=== PATIENT | female | born 1995 | race Caucasian/White ===

== ENCOUNTER 2023-12-30 17:47 | Observation (INO) ==
--- NOTE | 2023-12-30 18:09 | ED.PDOC ---
General ED Provider: Dr. CARL SOTELO MD Chief Complaint: Cough Stated Complaint: Patient complains acute onset dyspnea the past 4 to 5 days associated with productive cough has dyspnea at rest and exertional dyspnea. Denies chest pain diaphoresis. Palpitations, patient also complains having fever 102 degrees this past 24 hours. Denies chest pain, abdominal pain, urinary symptoms. Patient states she vapes over the past several years. Time Seen by Provider: 12/30/23 18:06 Mode of Arrival: Walk-In Information Source: Patient Exam Limitations: Clinical condition Primary Care Provider: HELEN ESTRELLA Nursing and Triage Documentation Reviewed and Agree: Yes What is Opioid Naive?: *Opioid Naive implies the patient is not already taking opioids or not chronically receiving opioids on a daily basis. *PRN dosing is not "usually" associated with tolerance. *Patients are at higher risk of over-sedation and aspiration. What is Opioid Tolerant?: *Opioid Tolerance implies less than the expected response to an opioid. *Acquired tolerance is defined by the patient taking 60mg of oral morphine daily (or equianalgesic dose of another opioid) for 1 week or more. *Often associated with chronic pain. *May take more than usual dose to achieve desired pain control. Review of Systems Review Of Systems Constitutional: Reports Fever, Malaise and Weakness Eyes: Reports No symptoms Ears, Nose, Mouth, Throat: Reports No symptoms Respiratory: Reports Cough and Shortness of Breath Cardiac: Reports No symptoms GI: Reports No symptoms : Reports No symptoms Musculoskeletal: Reports No symptoms Neurological: Reports No symptoms Endocrine: Reports No symptoms Hematologic/Lymphatic: Reports No symptoms All Other Systems: Reviewed and Negative [facility] Medical History section wound complication O90.9 - Complication of the puerperium, unspecified (ICD-10) Female Reproductive History Menstrual Hx Hysterectomy: No Hx Tubal Ligation: Yes Physical Exam Physical Exam Appearance: Reports Ill-appearing Ill-appearing: Mild Pain Distress: None Eyes: Reports STAN, EOMI and Conjunctiva clear ENT: Reports Ears normal and Nose normal Neck: Supple Respiratory: Reports Airway patent, Breath sounds clear and Breath sounds diminished (Diminished breath sounds at the bases decreased air exchange inspiratory crackles no wheezes rhonchi) Cardiovascular: Reports RRR, Pulses normal and Tachycardia GI/: Reports Soft, Nontender, No masses and Bowel sounds normal Musculoskeletal: Reports Normal strength, ROM intact, No edema and No calf tenderness Skin: Reports Warm, Dry and Normal color Neurological: Reports Sensation intact, Motor intact, Reflexes intact, Cranial nerves intact and Alert Psychiatric: Reports Affect appropriate and Mood appropriate Critical Care Note Critical Care Note Total Critical Care Time (mins): 0 Course Course 12/30/23 18:10 12/30/23 18:17 Orders, Labs, Meds: Lab Review 12/30/23 12/30/23 18:10 18:17 WBC 14.01 H RBC 5.18 Hgb 11.5 L Hct 37.1 MCV 71.6 L MCH 22.2 L MCHC 31.0 L RDW Coeff of Earlene 15.9 H Plt Count 571 H Immature Gran % (Auto) 0.4 Neut % (Auto) 81.1 H Lymph % (Auto) 8.3 L [place] % (Auto) 8.5 Eos % (Auto) 1.4 Baso % (Auto) 0.3 Neut # (Auto) 11.4 H Lymph # (Auto) 1.2 [place] # (Auto) 1.2 Eos # (Auto) 0.2 Baso # (Auto) 0.0 Immature Gran # (Auto) 0.1 PT 10.2 INR 0.98 APTT 29.9 Sodium 137.4 Potassium 3.52 Chloride 100.4 Carbon Dioxide 26.8 Anion Gap 13.72 BUN 5.8 L Creatinine 0.62 Estimated GFR (MDRD) 115.00 BUN/Creatinine Ratio 9.35 Glucose 121.2 H Lactic Acid 0.95 Calcium 9.22 Magnesium 2.08 Total Bilirubin 0.36 AST 45.2 H ALT 47.1 H Alkaline Phosphatase 76.7 Troponin I < 0.012 Total Protein 7.81 Albumin 4.51 Globulin 3.30 Albumin/Globulin Ratio 1.36 Urine Color Yellow Urine Clarity Clear Urine pH 6.5 Ur Specific [place] 1.025 Urine Protein 1+ H Urine Glucose (UA) Negative Urine Ketones Negative Urine Blood Negative Urine Nitrite Negative Urine Bilirubin Negative Urine Urobilinogen 0.2 Ur Leukocyte Esterase Negative Urine Microscopic WBC 2-5 Ur Squamous Epith Cells 2-5 Urine Test Negative Influ A Molecular Assay Negative by naat Influ B Molecular Assay Negative by naat RSV Antigen Negative by naat SARS CoV-2 RNA Rapid DARRELL Negative Orders Category Date Time Status EKG-(ED ONLY) Stat CARDIO 12/30/23 18:17 Completed NEBULIZER TREATMENT Stat CARDIO 12/30/23 18:19 Completed NPO REMINDER: IMAGING ONCE CARE 12/30/23 19:06 Completed Death Clearance Coordinator [ED SIMPLEX PRINTER INSTALLER APPLIED] .ONCE EMERGENCY 12/30/23 18:17 Active BLOOD CULTURE (ED ONLY) Stat LAB 12/30/23 18:10 Received CBC W/ AUTO DIFF Stat LAB 12/30/23 18:10 Completed CMP [COMPREHENSIVE METABOLIC PANEL] Stat LAB 12/30/23 18:17 Completed COVID [SARS COV-2 RNA RAPID DARRELL] Stat LAB 12/30/23 18:10 Completed FLU A & B MOLECULAR [FLU A/B MOLECULAR] Stat LAB 12/30/23 18:10 Completed LACTIC ACID Stat LAB 12/30/23 18:10 Completed MAGNESIUM Stat LAB 12/30/23 18:17 Completed PT WITH INR Stat LAB 12/30/23 18:10 Completed PTT [PARTIAL THROMBOPLASTIN TIME] Stat LAB 12/30/23 18:10 Completed RSV Stat LAB 12/30/23 18:10 Completed TROPONIN I Stat LAB 12/30/23 18:17 Completed URINALYSIS C & S IF INDICATED Stat LAB 12/30/23 18:10 Completed URINE Stat LAB 12/30/23 18:10 Completed Ceftriaxone/D5w 1 gm Premix [Rocephin 1 gm/50 ml D5w] Meds 12/30/23 18:19 Discontinued 1 gm in 50 ml IV ONCE Ibuprofen [Motrin] Meds 12/30/23 19:00 Discontinued 600 mg PO ONCE STA Ipratropium/Albuterol Neb [Duoneb] Meds 12/30/23 18:17 Discontinued 3 ml NEB ONCE STA Sodium Chloride 0.9% [Sodium Chloride] 1,000 ml Meds 12/30/23 18:17 Discontinued IV BOLUS Sodium Chloride 0.9% [Sodium Chloride] 1,000 ml Meds 12/30/23 19:58 Discontinued IV BOLUS CHEST, 1V AP ONLY Stat RADS 12/30/23 18:22 Completed CTA CHEST PE PROTOCOL Stat RADS 12/30/23 19:06 Completed Medications Discontinued Medications Generic Name Dose Route Start Last Admin Trade Name Freq PRN Reason Stop Dose Admin Albuterol/Ipratropium 3 ml 12/30/23 18:17 12/30/23 18:29 Ipratropium/Albuterol Vial.Neb NEB 12/30/23 18:18 3 ml ONCE STA Administration Sodium Chloride 1,000 mls @ 1,000 mls/hr 12/30/23 18:17 12/30/23 19:33 Sodium Chloride IV 12/30/23 19:16 Infused BOLUS ONE Infusion CEFTRIAXONE/D5W 1 GM PREMIX 1 gm in 50 mls @ 100 mls/hr 12/30/23 18:19 12/30/23 18:33 Rocephin 1 Gm/50 Ml D5w IV 12/30/23 18:48 100 mls/hr ONCE ONE Administration Sodium Chloride 1,000 mls @ 1,000 mls/hr 12/30/23 19:58 12/30/23 21:00 Sodium Chloride IV 12/30/23 20:57 Infused BOLUS ONE Infusion Ibuprofen 600 mg 12/30/23 19:00 12/30/23 19:06 Ibuprofen 600 Mg Tablet PO 12/30/23 19:01 600 mg ONCE STA Administration Vital Signs: Temp Pulse Resp BP Pulse Ox 12/30/23 20:58 98.7 F 90 20 118/63 96 12/30/23 17:50 101.2 F H 122 H 22 H 157/87 H 94 L Discharge Plan Discharge Patient Disposition: PLACED OBSERVATION Discharge Problem: Community acquired pneumonia Qualifiers: Laterality: right Lung location: lower lobe of lung Qualified Code(s): J18.9 - Pneumonia, unspecified organism Prescriptions: No Action No Reported Medications Did you review [place] TELEVISION CAMERA OPERATOR for ALL controlled substances?: Not Applicable ED Provider: CARL SOTELO Condition: Stable Physician Progress Note: History obtained from the patient complains of having a productive cough clear sputum increasing dyspnea past 4 to 5 days associated fever and chills. Denies arthralgia. Patient complains of marked exertional dyspnea. Denies chest pain diaphoresis palpitation abdominal pain urinary symptoms. Patient took Tylenol 1000 mg prior to arrival to emergency room Vital signs blood pressure 157/84, pulse 122, respirations 22, temperature 1.2, O2 saturation 94%. Patient placed on sepsis protocol 83 kg / 30 mL IV fluids with saline 1 bolus over 1 hour x 2 Rocephin 1 g IV piggyback 1843-EKG interpretation from self consistent with normal sinus rhythm sinus tachycardia 109 with nonspecific T wave changes noted. There is no ectopy or prolongation of the [place] or QT interval. All laboratory data reviewed CBC, CMP troponin lactic acid and all within normal limit except for a white blood cell count of 14,000, the lactic acid is 0.95. Portable chest x-ray interpretation by myself is consistent with patchy areas of consolidation right lower lobe 2056-temperature is 98.7 2134-vital signs blood pressure pulse of 66, pulse 95, respirations 22, saturation 96% on room air CT of the chest PE protocol reveals contrast interpretation per radiologist consistent with hilar and mediastinal lymphadenopathy likely reactive. There is no evidence of pulmonary mass. There is right lower lobe pneumonia there is no evidence of pulmonary embolism. Differential diagnosis: 1) community-acquired pneumonia Discussed with hospitalist Vee Mcmanus at 2134 for observation
[2023-12-30] MEDS: DUONEB NEB STA (18:29)
[2023-12-30] MEDS: SODIUM CHLORIDE 1,000 ML IV ONE ×2 (18:33→20:00)
[2023-12-30] MEDS: ROCEPHIN 1 GM/50 ML D5W 1 GM/50 ML BAG IV ONE (18:33)
[2023-12-30 18:34] LABS: BASOPHILS % (AUTO) 0.3 % (0.0-3.0); EOSINOPHILS # (AUTO) 0.2 K/ul (0.0-0.7); EOSINOPHILS % (AUTO) 1.4 % (0.0-7.0); HEMATOCRIT 37.1 % (37.0-47.0); HEMOGLOBIN 11.5 g/dl (12.0-16.0); IMMATURE GRANULOCYTE # (AUTO) 0.1 (0.0-1.0); IMMATURE GRANULOCYTE % (AUTO) 0.4 % (0.0-5.0); LYMPHOCYTES # (AUTO) 1.2 K/uL (0.60-3.4); LYMPHOCYTES % (AUTO) 8.3 (10.0-50.0); MEAN CORPUSCULAR HEMOGLOBIN 22.2 pg (27.0-31.0); MEAN CORPUSCULAR VOLUME 71.6 fl (81.0-99.0); MONOCYTES # (AUTO) 1.2 K/uL (0.4-2.0); MONOCYTES % (AUTO) 8.5 (0-10); NEUTROPHILS # (AUTO) 11.4 K/ul (2.0-6.9); NEUTROPHILS % (AUTO) 81.1 % (42.2-75.2); PLATELET COUNT 571 10^3/uL (140-440); RDW COEFFICIENT OF VARIATION 15.9 % (11.6-14.8); RED BLOOD COUNT 5.18 10^6/ul (4.20-5.40); WHITE BLOOD COUNT 14.01 K/ul (4.6-10.2)
[2023-12-30 18:41] LABS: URINE PREGNANCY TEST NEGATIVE (NEGATIVE)
[2023-12-30 18:44] LABS: BILIRUBIN,URINE Negative (NEGATIVE); CLARITY,URINE Clear (CLEAR); COLOR,URINE Yellow (YELLOW); GLUCOSE, URINE (UA) Negative (NEGATIVE); KETONES,URINE Negative (NEGATIVE); LEUKOCYTE ESTERASE ,URINE Negative (NEGATIVE); NITRITE,URINE Negative (NEGATIVE); PH,URINE 6.5 (5-9); PROTEIN,URINE 1+ (NEGATIVE); URINE, BLOOD Negative (NEGATIVE); UROBILINOGEN,URINE 0.2 (0.2)
[2023-12-30 18:49] LABS: ALANINE AMINOTRANSFERASE 47.1 U/L (0-35); ALBUMIN 4.51 g/dL (3.5-5.0); ALKALINE PHOSPHATASE 76.7 U/L (38-126); ASPARTATE AMINO TRANSFERASE 45.2 U/L (14-36); BILIRUBIN,TOTAL 0.36 mg/dL (0.2-1.3); BLOOD UREA NITROGEN 5.8 mg/dL (7-17); CALCIUM 9.22 mg/dL (8.4-10.2); CARBON DIOXIDE 26.8 mmol/L (22-30.0); CHLORIDE 100.4 mmol/L (98-107); CREATININE 0.62 mg/dL (0.60-1.30); GLUCOSE 121.2 mg/dL (74-106); MAGNESIUM 2.08 mg/dL (1.6-2.3); POTASSIUM 3.52 mmol/L (3.5-5.1); SODIUM 137.4 mmol/L (134.5-145); TOTAL PROTEIN 7.81 g/dL (6.3-8.2)
[2023-12-30 18:53] LABS: MOLECULAR FLU A NEGATIVE BY NAAT (NEGATIVE); MOLECULAR FLU B NEGATIVE BY NAAT (NEGATIVE); PARTIAL THROMBOPLASTIN TIME 29.9 SEC (23.9-40.0); PROTHROMBIN TIME 10.2 SEC (9.3-11.0); RSV MOLECULAR NEGATIVE BY NAAT (NEGATIVE); SARS COV-2 RNA RAPID NAAT NEGATIVE (NEGATIVE)
[2023-12-30 19:01] LABS: TROPONIN I < 0.012 ng/ml (0.0000-0.120)
[2023-12-30] MEDS: MOTRIN PO STA (19:06)
--- NOTE | 2023-12-30 20:22 | DI ---
EXAM: CHEST RADIOGRAPH TECHNIQUE: Single frontal chest radiograph. HISTORY: Cough. COMPARISON: CT pulmonary angiogram dated 12/30/2023. FINDINGS: Patchy consolidation in the right lower lobe consistent with pneumonia. Lungs are otherwise clear. The heart size is normal. There is no pleural effusion. There is no pneumothorax. IMPRESSION: 1. Right lower lobe pneumonia. 2. Otherwise unremarkable chest radiograph.
--- NOTE | 2023-12-30 21:25 | CT ---
EXAM: CTA CHEST HISTORY: Dyspnea COMPARISON: None. FINDINGS: Postcontrast helical imaging was obtained through the thorax utilizing 1.2-mm collimation. Sagittal and coronal reconstructions were imaged and reviewed. 3-D volume rendered images are subm itted.. The thoracic inlet is unremarkable. The heart is normal in size without pericardial effusio n. Right hilar lymph node measures 12 mm. Subcarinal lymphadenopathy measures upwards of1. 8 cm. There is no evidence of pulmonary embolus. Dense consolidation is seen within the right lower lobe. The left lung is clear.. Bone windows reveals no lytic or blastic lesions.. Several hypoattenuating lesions in the spleen measuring upwards of 2.1 cm are indeterminate. IMPRESSION: Hilar and mediastinal lymphadenopathy likely reactive No evidence of pulmonary mass. Right lower lobe pneumonia. Follow-up to resolution is recommended ""Indeterminate hypoattenuating lesions within the spleen. All CT scans are performed using dose optimization techniques as appropriate to the performed exam an d include at least one of the following: Automated exposure control, adjustment of the mA and/or kV according t o size, and the use of iterative reconstruction technique.
[2023-12-30 22:40] VITALS: BMI 32.4
[2023-12-30] MEDS: ZITHROMAX PO SCH (22:46)
[2023-12-30] MEDS: LACTATED RINGERS 1,000 ML IV SCH (22:47)
[2023-12-31] MEDS: TYLENOL PO PRN (02:58)
[2023-12-31] MEDS: REGLAN IVP PRN (03:24)
[2023-12-31 05:27] LABS: BASOPHILS % (AUTO) 0.2 % (0.0-3.0); EOSINOPHILS # (AUTO) 0.1 K/ul (0.0-0.7); EOSINOPHILS % (AUTO) 1.1 % (0.0-7.0); HEMATOCRIT 35.9 % (37.0-47.0); HEMOGLOBIN 10.9 g/dl (12.0-16.0); IMMATURE GRANULOCYTE # (AUTO) 0.1 (0.0-1.0); IMMATURE GRANULOCYTE % (AUTO) 0.4 % (0.0-5.0); LYMPHOCYTES # (AUTO) 0.7 K/uL (0.60-3.4); MEAN CORPUSCULAR HEMOGLOBIN 22.2 pg (27.0-31.0); MEAN CORPUSCULAR HGB CONC 30.4 (31.8-35.4); MEAN CORPUSCULAR VOLUME 73.1 fl (81.0-99.0); MONOCYTES # (AUTO) 1.1 K/uL (0.4-2.0); MONOCYTES % (AUTO) 8.5 (0-10); NEUTROPHILS # (AUTO) 10.3 K/ul (2.0-6.9); NEUTROPHILS % (AUTO) 83.8 % (42.2-75.2); PLATELET COUNT 513 10^3/uL (140-440); RDW COEFFICIENT OF VARIATION 16.1 % (11.6-14.8); RED BLOOD COUNT 4.91 10^6/ul (4.20-5.40); WHITE BLOOD COUNT 12.33 K/ul (4.6-10.2)
[2023-12-31 05:42] LABS: ALANINE AMINOTRANSFERASE 43.4 U/L (0-35); ALBUMIN 4.13 g/dL (3.5-5.0); ALKALINE PHOSPHATASE 63.4 U/L (38-126); ASPARTATE AMINO TRANSFERASE 40.3 U/L (14-36); BILIRUBIN,TOTAL 0.29 mg/dL (0.2-1.3); BLOOD UREA NITROGEN 5.2 mg/dL (7-17); CALCIUM 8.9 mg/dL (8.4-10.2); CARBON DIOXIDE 27.5 mmol/L (22-30.0); CHLORIDE 102.8 mmol/L (98-107); CREATININE 0.62 mg/dL (0.60-1.30); GLUCOSE 132.3 mg/dL (74-106); POTASSIUM 3.48 mmol/L (3.5-5.1); SODIUM 139.3 mmol/L (134.5-145); TOTAL PROTEIN 7.15 g/dL (6.3-8.2)
[2023-12-31] MEDS: ROBITUSSIN AC PO PRN (08:40)
[2023-12-31] MEDS: ROCEPHIN 1 GM/50 ML D5W 1 GM/50 ML BAG IV SCH (08:40)
--- NOTE | 2023-12-31 11:06 | PCM ---
Date of Service Date Seen by Provider: 12/31/23 Time Seen by Provider: 09:00 Admit Day/Time Admission Date: 12/30/23 Admission Time: 21:38 Reason for Admission Chief Complaint: COMUNITY-AQUIRED [facility] Hospital Provider [facility] Provider: GERMÁN CHINCHILLA PA-C, [facility] [place] Primary Care Physician Primary Care Physician: HELEN ESTRELLA History of Present Illness History of Present Illness: Patient is a 28 year old female with no significant pmhx who presents to ER for worsening sob, fever, and cough x6 days. Patient is 2 months post s/p c section and currently combo breast/formula feeding. She was found to have RLL on CXR and CTA in ER. WBC was 14. She was febrile and tachycardic. Lactic was normal. She was given fluids and rocephin. She was admitted to med surg. Patient felt terrible through the night, has been tachy, febrile, and coughing. She is agreeable to pump and dump for robitussin with codeine. Case Discussed With Case Discussed With: Patient's case was discussed with the ER Physicians, Dr. Tate. 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) section wound complication O90.9 - Complication of the puerperium, unspecified (ICD-10) Surgical History Hx of tubal ligation Z98.51 - Tubal ligation status (ICD-10) Allergies Allergies Allergy/AdvReac Type Severity Reaction Status Date / Time amoxicillin AdvReac Unknown Verified 12/30/23 17:56 Current Medications Home Medications 1 [No Reported Medications] 12/30/23 [History Confirmed 12/30/23 Last Taken Unknown] Home Acetaminophen (Acetaminophen 325 Mg Tablet) 650 mg PO Q4H PRN PRN Reason: Mild Pain Last Admin: 12/31/23 08:59 Dose: 650 mg Albuterol/Ipratropium (Ipratropium/Albuterol Vial.Neb) 3 ml NEB RTQ6H PRN PRN Reason: Wheezing Azithromycin (Azithromycin 250 Mg Tablet) 500 mg PO BEDTIME ROSAURA Stop: 01/02/24 21:44 Last Admin: 12/30/23 22:46 Dose: 500 mg CEFTRIAXONE/D5W 1 GM PREMIX (Rocephin 1 Gm/50 Ml D5w) 1 gm in 50 mls @ 100 mls/hr IV DAILY ROSAURA Stop: 01/03/24 08:59 Last Admin: 12/31/23 08:40 Dose: 100 mls/hr Metoclopramide HCl (Metoclopramide Hcl 10 Mg/2 Ml) 5 mg IVP Q6HR PRN PRN Reason: nausea Last Admin: 12/31/23 03:24 Dose: 5 mg Discontinued Medications Albuterol/Ipratropium (Ipratropium/Albuterol Vial.Neb) 3 ml NEB ONCE STA Stop: 12/30/23 18:18 Last Admin: 12/30/23 18:29 Dose: 3 ml Sodium Chloride (Sodium Chloride) 1,000 mls @ 1,000 mls/hr IV BOLUS ONE Stop: 12/30/23 19:16 Last Infusion: 12/30/23 19:33 Dose: Infused CEFTRIAXONE/D5W 1 GM PREMIX (Rocephin 1 Gm/50 Ml D5w) 1 gm in 50 mls @ 100 mls/hr IV ONCE ONE Stop: 12/30/23 18:48 Last Admin: 12/30/23 18:33 Dose: 100 mls/hr Sodium Chloride (Sodium Chloride) 1,000 mls @ 1,000 mls/hr IV BOLUS ONE Stop: 12/30/23 20:57 Last Infusion: 12/30/23 21:00 Dose: Infused Lactated Ringer's (Lactated Ringers) 1,000 mls @ 100 mls/hr IV .Q10H ROSAURA Last Infusion: 12/31/23 08:34 Dose: Infused Ibuprofen (Ibuprofen 600 Mg Tablet) 600 mg PO ONCE STA Stop: 12/30/23 19:01 Last Admin: 12/30/23 19:06 Dose: 600 mg Opioid Naive vs. Tolerant Does Patient Take Opioids?: No Is Patient Opioid Naive?: Yes What is Opioid Naive?: *Opioid Naive implies the patient is not already taking opioids or not chronically receiving opioids on a daily basis. *PRN dosing is not "usually" associated with tolerance. *Patients are at higher risk of over-sedation and aspiration. Is Patient Opioid Tolerant?: No What is Opioid Tolerant?: *Opioid Tolerance implies less than the expected response to an opioid. *Acquired tolerance is defined by the patient taking 60mg of oral morphine daily (or equianalgesic dose of another opioid) for 1 week or more. *Often associated with chronic pain. *May take more than usual dose to achieve desired pain control. Review of Systems Constitutional: Reports Fever, Fatigue, Chills and Sweats Head: Reports Normocephalic and Atraumatic Throat: Denies Sore Throat Cardiovascular: Denies Chest pain, Chest Pressure or Edema Respiratory: Reports Cough and Shortness of air Gastrointestinal: Denies Nausea, Vomiting, Diarrhea, Abdominal pain or Melena Genitourinary: Denies Dysuria or Frequency Neurological: Denies Headache, Dizziness or Syncope Physical examination Most Recent Vital Signs: Most Recent Vital Signs Temperature 98.5 F 12/31/23 10:47 Temperature Source Oral 12/31/23 10:47 Temperature Source Temporal Artery Scan 12/30/23 20:58 Pulse Rate 92 12/31/23 10:47 Respiratory Rate 16 12/31/23 10:47 Blood Pressure 114/91 H 12/31/23 08:00 Blood Pressure Mean 98 12/31/23 08:00 Blood Pressure Left Arm 110/74 12/30/23 22:15 Blood Pressure Location Left Arm 12/31/23 08:00 Blood Pressure Position Sitting 12/31/23 08:00 O2 Sat by Pulse Oximetry 94 L 12/31/23 08:00 Oxygen Delivery Method Room Air 12/31/23 10:56 Height 5 ft 3 in 12/30/23 22:15 Weight 183 lb 12/30/23 22:15 Telemetry Type Remote Telemetry 12/31/23 07:00 Telemetry Monitoring Continues 12/31/23 07:00 Irregular Telemetry Rate (Approximate) 80-90 BPM 12/31/23 01:00 Telemetry Heart Rate 110 H 12/31/23 07:00 EKG LA Interval 0.14 12/31/23 07:00 EKG QRS Interval 0.08 12/31/23 07:[address] 12/31/23 07:00 Appearance: Positive Well-appearing, Well-nourished, No Apparent Distress and Alert and Oriented x3 Skin: Positive [place], Warm and Good Turgor; Negative Rashes HEENT: Positive Normocephalic and Atraumatic Neck: Positive Supple and Midline Trachea Chest/Lungs: Positive Symmetrical With Equal Breath Sounds and Rhonci (+R, pt coughing continuously through exam. Airway intact. Nonlabored breathing. Able to speak full sentences. ); Negative Rales or Wheezes Heart: Positive Tachycardia GI/: Positive Soft, Nontender, Bowel Sounds Normal and No Distention Extremities: Negative Amputations or Edema Neurological: Positive Cranial Nerves Intact, Alert, Oriented and Muscle Strength 5/5 in Upper and Lower Extremities Bilaterally Psychiatric: Positive Oriented x4, Appropriate Mood and Appropriate Affect Labs This Visit Labs This Visit: Labs This Visit 12/30/23 12/30/23 12/31/23 18:10 18:17 05:12 WBC 14.01 H 12.33 H RBC 5.18 4.91 Hgb 11.5 L 10.9 L Hct 37.1 35.9 L MCV 71.6 L 73.1 L MCH 22.2 L 22.2 L MCHC 31.0 L 30.4 L RDW Coeff of [place] 15.9 H 16.1 H Plt Count 571 H 513 H Immature Gran % (Auto) 0.4 0.4 Neut % (Auto) 81.1 H 83.8 H Lymph % (Auto) 8.3 L 6.0 L [place] % (Auto) 8.5 8.5 Eos % (Auto) 1.4 1.1 Baso % (Auto) 0.3 0.2 Neut # (Auto) 11.4 H 10.3 H Lymph # (Auto) 1.2 0.7 [place] # (Auto) 1.2 1.1 Eos # (Auto) 0.2 0.1 Baso # (Auto) 0.0 0.0 Immature Gran # (Auto) 0.1 0.1 PT 10.2 INR 0.98 APTT 29.9 Sodium 137.4 139.3 Potassium 3.52 3.48 L Chloride 100.4 102.8 Carbon Dioxide 26.8 27.5 Anion Gap 13.72 12.48 BUN 5.8 L 5.2 L Creatinine 0.62 0.62 Estimated GFR (MDRD) 115.00 115.00 BUN/Creatinine Ratio 9.35 8.38 Glucose 121.2 H 132.3 H Lactic Acid 0.95 Calcium 9.22 8.90 Magnesium 2.08 Total Bilirubin 0.36 0.29 AST 45.2 H 40.3 H ALT 47.1 H 43.4 H Alkaline Phosphatase 76.7 63.4 Troponin I < 0.012 Total Protein 7.81 7.15 Albumin 4.51 4.13 Globulin 3.30 3.02 Albumin/Globulin Ratio 1.36 1.36 Urine Color Yellow Urine Clarity Clear Urine pH 6.5 Ur Specific [place] 1.025 Urine Protein 1+ H Urine Glucose (UA) Negative Urine Ketones Negative Urine Blood Negative Urine Nitrite Negative Urine Bilirubin Negative Urine Urobilinogen 0.2 Ur Leukocyte Esterase Negative Urine Microscopic WBC 2-5 Ur Squamous Epith Cells 2-5 Urine Test Negative Influ A Molecular Assay Negative by naat Influ B Molecular Assay Negative by naat RSV Antigen Negative by naat SARS CoV-2 RNA Rapid DARRELL Negative Imaging Imaging: EXAM: CHEST RADIOGRAPH TECHNIQUE: Single frontal chest radiograph. HISTORY: Cough. COMPARISON: CT pulmonary angiogram dated 12/30/2023. FINDINGS: Patchy consolidation in the right lower lobe consistent with pneumonia. Lungs are otherwise clear. The heart size is normal. There is no pleural effusion. There is no pneumothorax. IMPRESSION: 1. Right lower lobe pneumonia. 2. Otherwise unremarkable chest radiograph. EXAM: CTA CHEST HISTORY: Dyspnea COMPARISON: None. FINDINGS: Postcontrast helical imaging was obtained through the thorax utilizing 1.2-mm collimation. Sagittal and coronal reconstructions were imaged and reviewed. 3-D volume rendered images are submitted.. The thoracic inlet is unremarkable. The heart is normal in size without pericardial effusion. Right hilar lymph node measures 12 mm. Subcarinal lymphadenopathy measures upwards of1. 8 cm. There is no evidence of pulmonary embolus. Dense consolidation is seen within the right lower lobe. The left lung is clear.. Bone windows reveals no lytic or blastic lesions.. Several hypoattenuating lesions in the spleen measuring upwards of 2.1 cm are indeterminate. IMPRESSION: Hilar and mediastinal lymphadenopathy likely reactive No evidence of pulmonary mass. Right lower lobe pneumonia. Follow-up to resolution is recommended ""Indeterminate hypoattenuating lesions within the spleen. Review Statement Review Statement: I have independently reviewed and interpreted the labs/EKGs/imaging that were ordered by the ER provider. I have reviewed all outside records that are available currently in our EMR including imaging/notes/labs from previous visits. Plan Plan: 1. Community acquired pneumonia, right - Cont azith and rocephin. Duonebs. Robitussin AC prn for cough. 2. Sepsis - Will await blood cultures. LA normal but pt with elevated wbc, temp, rr, and hr upon arrival. Stop fluids today, pt eating and drinking well. 3. Post s/p c section and - Will keep in mind with medication choices. She is agreeable to pump and dump as needed. DVT Prophylaxis: Ambulation Time Spent: Greater than 80 minutes spent with patient, 50% of the time spent with this patient was devoted to counseling and coordination of care. [facility] Plannin minutes spent discussing advance care planning. Smoking Cessation: 3 minutes spent discussing smoking cessation. Admit to: Obs Discussed Plan of Care with Dr. Jody Steele. Medications Medication Orders: Medications Ordered Category Date Time Status Acetaminophen [Tylenol] Meds 12/30/23 21:40 Active 650 mg PO Q4H PRN Azithromycin [Zithromax] Meds 12/30/23 21:45 Active 500 mg PO BEDTIME Ceftriaxone/D5w 1 gm Premix [Rocephin 1 gm/50 ml D5w] Meds 12/31/23 09:00 Active 1 gm in 50 ml IV DAILY Codeine Phosphate/Guaifenesin [Robitussin AC] Meds 12/31/23 06:12 Active 5 ml PO Q6H PRN Metoclopramide HCl [Reglan] Meds 12/30/23 21:40 Active 5 mg IVP Q6HR PRN
[2023-12-31] MEDS: DUONEB NEB PRN (13:35)
[2023-12-31] MEDS: ALBUTEROL 0.083% NEB NEB STA (18:26)
[2023-12-31] MEDS: MOTRIN PO PRN (21:43)
[2024-01-01 05:16] VITALS: BP 117/55; TEMP 98
[2024-01-01 05:43] LABS: BASOPHILS % (AUTO) 0.2 % (0.0-3.0); EOSINOPHILS # (AUTO) 0.3 K/ul (0.0-0.7); EOSINOPHILS % (AUTO) 2.3 % (0.0-7.0); HEMATOCRIT 33.7 % (37.0-47.0); HEMOGLOBIN 10.2 g/dl (12.0-16.0); IMMATURE GRANULOCYTE % (AUTO) 0.3 % (0.0-5.0); LYMPHOCYTES # (AUTO) 1.6 K/uL (0.60-3.4); LYMPHOCYTES % (AUTO) 13.6 (10.0-50.0); MEAN CORPUSCULAR HGB CONC 30.3 (31.8-35.4); MEAN CORPUSCULAR VOLUME 72.8 fl (81.0-99.0); MONOCYTES # (AUTO) 1.2 K/uL (0.4-2.0); MONOCYTES % (AUTO) 10.6 (0-10); NEUTROPHILS # (AUTO) 8.4 K/ul (2.0-6.9); PLATELET COUNT 494 10^3/uL (140-440); RDW COEFFICIENT OF VARIATION 16.4 % (11.6-14.8); RED BLOOD COUNT 4.63 10^6/ul (4.20-5.40); WHITE BLOOD COUNT 11.57 K/ul (4.6-10.2)
[2024-01-01 05:48] LABS: ALANINE AMINOTRANSFERASE 42.1 U/L (0-35); ALBUMIN 3.99 g/dL (3.5-5.0); ALKALINE PHOSPHATASE 63.1 U/L (38-126); BILIRUBIN,TOTAL 0.35 mg/dL (0.2-1.3); BLOOD UREA NITROGEN 4.2 mg/dL (7-17); CALCIUM 8.96 mg/dL (8.4-10.2); CARBON DIOXIDE 27.7 mmol/L (22-30.0); CHLORIDE 101.3 mmol/L (98-107); CREATININE 0.66 mg/dL (0.60-1.30); GLUCOSE 104.5 mg/dL (74-106); POTASSIUM 3.47 mmol/L (3.5-5.1); SODIUM 138.9 mmol/L (134.5-145); TOTAL PROTEIN 7.05 g/dL (6.3-8.2)
[2024-01-01] MEDS: K-DUR PO ONE (08:31)
[2024-01-01] MEDS: ZITHROMAX PO ONE (09:16)
--- NOTE | 2024-01-01 09:47 | DCSUM ---
Admission Date Admission Date: 12/30/23 Discharge Date Discharge Date: 01/01/24 Admission Diagnosis Admission Diagnosis: 1. Community acquired pneumonia, right 2. Sepsis Discharge Diagnosis Discharge Diagnosis: 1. Community acquired pneumonia, right 2. Sepsis - ruled out 3. Post s/p c section and Hospital Provider Hospital Provider: GERMÁN CHINCHILLA [place] [facility] [place] Primary Care Physician: HELEN ESTRELLA Summary of History and Physical Summary of History and Physical: Patient is a 28 year old female with no significant pmhx who presents to ER for worsening sob, fever, and cough x6 days. Patient is 2 months post s/p c section and currently combo breast/formula feeding. She was found to have RLL on CXR and CTA in ER. WBC was 14. No PE. She was febrile and tachycardic. Lactic was normal. She was given fluids and rocephin. She was admitted to med surg. Patient felt terrible through the night, has been tachy, febrile, and coughing. She is agreeable to pump and dump for robitussin with codeine. Hospital Course Subjective: Patient was treated with rocephin and azith. She has completed 3 doses of each. She is feeling better. She does continue to spike low grade fevers and HR increases during that time or during coughing fits. HR returns to normal when at rest. She had a much better night last night. She has been ambulatory. WBC count normalized. Blood cultures have been negative x48 hrs. Offered to stay another night in the hospital but she prefers to go home to her baby. She has been pumping and dumping due to taking robitussin with codeine. Will send her home on it and advised her to pump and dump for 24 hours following last dose. Otherwise, will send on xopenex and cefdinir. Azith completed. Consider repeat imaging in 4-6 weeks to ensure resolution. Pt denies pelvic pain, discharge, mastitis symptoms. Discharged to home in stable condition. We discussed good hand hygiene, wearing a mask, etc but it is likely baby has been exposed to her prior to hospitalization, monitor for symptoms in baby/other children in the home. Appearance: Pleasant, No Apparent Distress and Alert HEENT: MMM and Supple CVS: No Murmur Abdomen: Soft, Non-Tender and No Distention Respiratory: No Accessory Muscle Use Extremities: No Edema Vital Signs: Most Recent Vital Signs Temperature 98.0 F 01/01/24 05:15 Temperature Source Oral 01/01/24 05:15 Temperature Source Temporal Artery Scan 12/30/23 20:58 Pulse Rate 124 H 01/01/24 07:54 Respiratory Rate 20 01/01/24 05:15 Blood Pressure 117/55 L 01/01/24 05:15 Blood Pressure Mean 75 01/01/24 05:15 Blood Pressure Left Arm 110/74 12/30/23 22:15 Blood Pressure Location Left Arm 01/01/24 05:15 Blood Pressure Position Supine 01/01/24 05:15 O2 Sat by Pulse Oximetry 95 01/01/24 05:15 Oxygen Delivery Method Room Air 01/01/24 09:00 Height 5 ft 3 in 12/30/23 22:15 Weight 183 lb 12/30/23 22:15 Telemetry Type Remote Telemetry 01/01/24 06:59 Telemetry Monitoring Continues 01/01/24 06:59 Irregular Telemetry Rate (Approximate) 120-130 BPM 12/31/23 19:00 Telemetry Heart Rate 99 01/01/24 06:59 EKG OK Interval 0.14 01/01/24 06:59 EKG QRS Interval 0.10 01/01/24 06:59 Telemetry Strip Reading SR 01/01/24 06:59 Imaging: EXAM: CHEST RADIOGRAPH TECHNIQUE: Single frontal chest radiograph. HISTORY: Cough. COMPARISON: CT pulmonary angiogram dated 12/30/2023. FINDINGS: Patchy consolidation in the right lower lobe consistent with pneumonia. Lungs are otherwise clear. The heart size is normal. There is no pleural effusion. There is no pneumothorax. IMPRESSION: 1. Right lower lobe pneumonia. 2. Otherwise unremarkable chest radiograph. EXAM: CTA CHEST HISTORY: Dyspnea COMPARISON: None. FINDINGS: Postcontrast helical imaging was obtained through the thorax utilizing 1.2-mm collimation. Sagittal and coronal reconstructions were imaged and reviewed. 3-D volume rendered images are submitted.. The thoracic inlet is unremarkable. The heart is normal in size without pericardial effusion. Right hilar lymph node measures 12 mm. Subcarinal lymphadenopathy measures upwards of 1. 8 cm. There is no evidence of pulmonary embolus. Dense consolidation is seen within the right lower lobe. The left lung is clear.. Bone windows reveals no lytic or blastic lesions.. Several hypoattenuating lesions in the spleen measuring upwards of 2.1 cm are indeterminate. IMPRESSION: Hilar and mediastinal lymphadenopathy likely reactive No evidence of pulmonary mass. Right lower lobe pneumonia. Follow-up to resolution is recommended ""Indeterminate hypoattenuating lesions within the spleen. Lab Results Last 24 Hours: 01/01/24 05:00 WBC 11.57 H RBC 4.63 Hgb 10.2 L Hct 33.7 L MCV 72.8 L MCH 22.0 L MCHC 30.3 L RDW Coeff of Earlene 16.4 H Plt Count 494 H Immature Gran % (Auto) 0.3 Neut % (Auto) 73.0 Lymph % (Auto) 13.6 Wolfe % (Auto) 10.6 H Eos % (Auto) 2.3 Baso % (Auto) 0.2 Neut # (Auto) 8.4 H Lymph # (Auto) 1.6 Wolfe # (Auto) 1.2 Eos # (Auto) 0.3 Baso # (Auto) 0.0 Immature Gran # (Auto) 0.0 Sodium 138.9 Potassium 3.47 L Chloride 101.3 Carbon Dioxide 27.7 Anion Gap 13.37 BUN 4.2 L Creatinine 0.66 Estimated GFR (MDRD) 107.00 BUN/Creatinine Ratio 6.36 Glucose 104.5 Calcium 8.96 Total Bilirubin 0.35 AST 31.0 ALT 42.1 H Alkaline Phosphatase 63.1 Total Protein 7.05 Albumin 3.99 Globulin 3.06 Albumin/Globulin Ratio 1.30 Discharge Instructions Discharge Planning: Discharge Planning > [address] Jody Steele. Discharge Medications: Medications at Discharge (Home Meds & RX) 1 [No Reported Medications] 12/30/23 Discharge Plan Discharge Discharge Orders: Discharge Patient (ONCE); Ordered 01/01/24 Ordered By: GERMÁN CHINCHILLA Activity Restrictions/Additional Instructions: DISCHARGE TO HOME DX: COMMUNITY ACQUIRED PNEUMONIA, SEPSIS HAS BEEN RULED OUT DIET: NORMAL ACTIVITY: TOLERATED TYLENOL OR MOTRIN NEEDED FOR FEVER ALBUTEROL NEEDED FOR COUGH PUMP AND DUMP FOR 24 HOURS AFTER LAST COUGH MEDICINE WITH CODEINE DOSE, THEN SHOULD BE SAFE FOR BABY FINISH ANTIBIOTICS CALL PCP TOMORROW FOR APPOINTMENT FOR FOLLOW UP Instructions: Community Acquired Pneumonia (GEN) Patient Disposition: HOME SELF-CARE Prescriptions: New codeine-guaifenesin 10-100 mg/5 mL Liquid 5 ml PO Q6H PRN (Reason: cough) Qty: 118 0RF cefdinir 300 mg capsule 300 mg PO BID 2 Days Qty: 4 0RF Rx Instructions: START 01/02/24 levalbuterol tartrate [Xopenex HFA] 45 mcg/actuation HFA aerosol inhaler 2 puff inhalation Q4-6H PRN (Reason: SOB) Qty: 15 0RF fluconazole 150 mg tablet See Rx Instructions .ROUTE .COMPLEX Qty: 2 0RF Rx Instructions: Take 150 mg tablet at first sign of yeast, may repeat 150 mg tablet in 72 hours if needed Did you review [place] [employer] for ALL controlled substances?: Not Applicable Discussed opioids are addictive and Narcan is available by prescription or from pharmacy.: No Condition: Stable
[2024-01-01 10:00] VITALS: PULSE 107; RESP 16
== END 2024-01-01 10:50 | disposition home or self-care (01) ==
LOC: ED 17:47 → MEDSURG B 17:47
PROVIDERS: ADMIT Hospitalist; ATTEND Physician Assistant
DX: R06.02 Shortness of breath; Z20.822 Contact with and (suspected) exposure to COVID-19; Z98.890 Other specified postprocedural states; J18.9 Pneumonia, unspecified organism; F17.290 Nicotine dependence, other tobacco product, uncomplicated